=== PATIENT | female | born 1955 | race Caucasian/White ===

== ENCOUNTER 2023-12-08 18:03 | Inpatient (IN) | payer MEDICARE, OTHER ==
[~2023-12-08] VITALS: Ht 172.7 cm; Wt 40.7 kg
[2023-12-08] MEDS: LORazepam 2 mg/ml vial IV ONE (18:39)
[2023-12-08 19:29] LABS: BASOPHILS % (AUTO) 0.1 % (0-1); EOSINOPHILS % (AUTO) 0 % (0-6); HEMATOCRIT 33.9 % (35.0-45.0); HEMOGLOBIN 11.3 g/dl (12.0-16.0); LYMPHOCYTES # (AUTO) 0.4 X10'3 (1.1-4.8); LYMPHOCYTES % (AUTO) 5.1 % (21-51); MEAN CORPUSCULAR HEMOGLOBIN 30.6 PG (27.0-31.0); MEAN CORPUSCULAR HGB CONC 33.5 g/dL (33.0-36.5); MEAN CORPUSCULAR VOLUME 91.3 FL (78-98); MEAN PLATELET VOLUME 6.2 FL (7.4-10.4); MONOCYTES # (AUTO) 0.3 X10'3 (0-0.9); NEUTROPHILS # (AUTO) 7.5 X10'3 (1.8-7.7); NEUTROPHILS % (AUTO) 90.8 % (42-75); PLATELET COUNT 275 X10'3 (140-440); RED BLOOD COUNT 3.71 X10'6 (4.20-5.60); RED CELL DISTRIBUTION WIDTH 14.5 % (11.5-14.5); WHITE BLOOD COUNT 8.2 X10'3 (4.5-11.0)
[2023-12-08 19:32] LABS: ALBUMIN 1.9 G/DL (3.4-5.0); ANION GAP 7 (8-16); BLOOD UREA NITROGEN 20 MG/DL (7-18); BUN/CREATININE RATIO 30.8 (10.0-20.0); CALCIUM 8.9 MG/DL (8.5-10.1); CHLORIDE 109 MMOL/L (99-107); CREATININE 0.65 MG/DL (0.40-0.90); GLUCOSE 100 MG/DL (70-104); LIPASE 21 U/L (16-77); POTASSIUM 3.3 MMOL/L (3.5-5.1); SODIUM 142 MMOL/L (135-145); TOTAL CARBON DIOXIDE 26.1 MMOL/L (24-32); eCRCL 57 ML/MIN; eGFR > 90 ML/MIN
[2023-12-08] MEDS ORDERED: magnesium hydroxide 30ml (MOM) UD suspension PO PRN (22:00)
[2023-12-08] MEDS ORDERED: magnesium 4gm in 100ml NS 100 ML IV PRN (22:00)
[2023-12-08] MEDS ORDERED: magnesium 2GM in 50ml NS 50 ML IV PRN (22:00)
[2023-12-08] MEDS ORDERED: morphine 2 MG/ML inj. syringe IV PRN (22:00)
[2023-12-08] MEDS ORDERED: magnesium Cl slow-release 64mg tablet PO PRN (22:00)
[2023-12-08] MEDS ORDERED: potassium Cl 20 mEq SR tablet PO PRN ×2 (22:00)
[2023-12-08] MEDS ORDERED: mag hydrox/Alum hydrox/simeth 30ml oral suspension PO PRN (22:00)
[2023-12-08] MEDS ORDERED: acetaminophen 325mg tablet PO PRN (22:00)
[2023-12-08 23:02] LABS: INR 1.1 INR; PROTHROMBIN TIME 11.8 SECONDS (9.0-12.0)
[2023-12-08] MEDS: [UNRECOGNIZED DRUG - REMARK] IV ONE (23:53)
[2023-12-08] MEDS: heparin 10,000 units/1 ML INJ IV ONE (23:57)
[2023-12-08] MEDS: heparin 25,000 UNIT/250ml bag 250 ML IV PRN (23:58)
[2023-12-09] VITALS (10 sets, daily range): BP systolic 114–133; BP diastolic 65–82; PULSE 71–88; RESP 14–18; TEMP 97–98.1; O2SAT 91–98
[2023-12-09] MEDS: normal saline 1000ml 1,000 ML IV SCH (00:27)
[2023-12-09] MEDS ORDERED: AMOX-580 PO (04:16)
[2023-12-09] MEDS ORDERED: CHOL200052 PO (04:16)
[2023-12-09] MEDS ORDERED: AZIT-164 PO (04:16)
[2023-12-09] MEDS ORDERED: ALBU2.5V13 NEB (04:16)
[2023-12-09] MEDS ORDERED: DEXT20TA6 PO (04:16)
[2023-12-09] MEDS: pantoprazole 40 MG vial IV SCH (07:57)
[2023-12-09] MEDS: K and/or MAG REPLACEMENT MC SCH (08:00)
[2023-12-09] MEDS: docusate sod 100mg capsule PO SCH (08:00)
[2023-12-09 08:39] LABS: BASOPHILS % (AUTO) 0.2 % (0-1); EOSINOPHILS % (AUTO) 0.3 % (0-6); HEMATOCRIT 37.6 % (35.0-45.0); HEMOGLOBIN 12.4 g/dl (12.0-16.0); LYMPHOCYTES # (AUTO) 0.6 X10'3 (1.1-4.8); LYMPHOCYTES % (AUTO) 9.1 % (21-51); MEAN CORPUSCULAR HEMOGLOBIN 30.2 PG (27.0-31.0); MEAN CORPUSCULAR VOLUME 91.6 FL (78-98); MEAN PLATELET VOLUME 6.7 FL (7.4-10.4); MONOCYTES # (AUTO) 0.3 X10'3 (0-0.9); MONOCYTES % (AUTO) 4.5 % (2-12); NEUTROPHILS # (AUTO) 5.5 X10'3 (1.8-7.7); NEUTROPHILS % (AUTO) 85.9 % (42-75); PLATELET COUNT 291 X10'3 (140-440); RED CELL DISTRIBUTION WIDTH 15.3 % (11.5-14.5); WHITE BLOOD COUNT 6.4 X10'3 (4.5-11.0)
[2023-12-09 08:52] LABS: ALANINE AMINOTRANSFERASE 14 U/L (12-78); ALBUMIN 1.9 G/DL (3.4-5.0); ALBUMIN/GLOBULIN RATIO 0.4 (1.1-1.5); ALKALINE PHOSPHATASE 67 IU/L (46-116); ANION GAP 11 (8-16); ASPARTATE AMINO TRANSFERASE 18 U/L (10-37); BILIRUBIN,TOTAL 0.3 MG/DL (0.1-1.0); CALCIUM 9.3 MG/DL (8.5-10.1); CHLORIDE 109 MMOL/L (99-107); CREATININE 0.62 MG/DL (0.40-0.90); GLUCOSE 79 MG/DL (70-104); MAGNESIUM 2.3 MG/DL (1.5-2.4); POTASSIUM 3.4 MMOL/L (3.5-5.1); SODIUM 144 MMOL/L (135-145); TOTAL PROTEIN 6.7 G/DL (6.4-8.2); eCRCL 60 ML/MIN; eGFR > 90 ML/MIN
[2023-12-09 08:58] LABS: BLOOD UREA NITROGEN 20 MG/DL (7-18); BUN/CREATININE RATIO 32.3 (10.0-20.0)
[2023-12-09] MEDS: heparin 10,000 units/1 ML INJ IV PRN (09:31)
[2023-12-09 10:06] LABS: PRO BRAIN NATRIURETIC PEPTIDE 834 PG/ML (0-125)
[2023-12-09] MEDS: CefTRIAXone/D5W-Rocephin 1gm 50 ML IV SCH (10:19)
[2023-12-09] MEDS: MESSAGE TO NURSING IV ONE (10:19)
[2023-12-09] MEDS: bisacodyl 10mg suppository rectal RC STA (10:19)
[2023-12-09] MEDS: metroNIDAZOLE-Flagyl 500mg/NS 100 ML IV SCH (13:38)
[2023-12-09] MEDS: levoFLOXACIN-Levaquin 750MG/D5 150 ML IV SCH (13:38)
[2023-12-09] MEDS: heparin 25,000 UNIT/250ml bag 250 ML IV PRN (16:43)
[2023-12-09] MEDS: dextrose 5%-1/2 normal saline 1,000 ML IV SCH (18:04)
[2023-12-09] MEDS ORDERED: Melatonin 3mg tablet PO SCH (21:00)
[2023-12-09] MEDS: acetylcysteine 200 MG/ml 4ml vial INH SCH (23:22)
[2023-12-09] MEDS: [UNRECOGNIZED DRUG - REMARK] IV ONE (23:27)
[2023-12-10] VITALS (13 sets, daily range): BP systolic 123–160; BP diastolic 72–102; PULSE 73–85; RESP 13–24; TEMP 97–97.9; O2SAT 94–100
[2023-12-10] MEDS: LORazepam 2 mg/ml vial IV PRN (01:39)
[2023-12-10 08:13] LABS: BASOPHILS % (AUTO) 0.3 % (0-1); EOSINOPHILS % (AUTO) 0.4 % (0-6); HEMATOCRIT 34.3 % (35.0-45.0); HEMOGLOBIN 11.3 g/dl (12.0-16.0); LYMPHOCYTES # (AUTO) 0.6 X10'3 (1.1-4.8); LYMPHOCYTES % (AUTO) 11.7 % (21-51); MEAN CORPUSCULAR HEMOGLOBIN 29.9 PG (27.0-31.0); MEAN CORPUSCULAR HGB CONC 32.9 g/dL (33.0-36.5); MEAN PLATELET VOLUME 6.2 FL (7.4-10.4); MONOCYTES # (AUTO) 0.3 X10'3 (0-0.9); MONOCYTES % (AUTO) 5.8 % (2-12); NEUTROPHILS # (AUTO) 4.1 X10'3 (1.8-7.7); NEUTROPHILS % (AUTO) 81.8 % (42-75); PLATELET COUNT 338 X10'3 (140-440); RED BLOOD COUNT 3.77 X10'6 (4.20-5.60); RED CELL DISTRIBUTION WIDTH 14.4 % (11.5-14.5)
[2023-12-10 08:33] LABS: ALANINE AMINOTRANSFERASE 11 U/L (12-78); ALBUMIN 1.7 G/DL (3.4-5.0); ALBUMIN/GLOBULIN RATIO 0.4 (1.1-1.5); ALKALINE PHOSPHATASE 69 IU/L (46-116); ANION GAP 4 (8-16); ASPARTATE AMINO TRANSFERASE 13 U/L (10-37); BILIRUBIN,TOTAL 0.3 MG/DL (0.1-1.0); BLOOD UREA NITROGEN 20 MG/DL (7-18); BUN/CREATININE RATIO 31.7 (10.0-20.0); CALCIUM 8.9 MG/DL (8.5-10.1); CHLORIDE 106 MMOL/L (99-107); CREATININE 0.63 MG/DL (0.40-0.90); GLUCOSE 108 MG/DL (70-104); MAGNESIUM 1.9 MG/DL (1.5-2.4); POTASSIUM 3.3 MMOL/L (3.5-5.1); SODIUM 138 MMOL/L (135-145); TOTAL CARBON DIOXIDE 28.2 MMOL/L (24-32); TOTAL PROTEIN 6.2 G/DL (6.4-8.2); eCRCL 59 ML/MIN; eGFR > 90 ML/MIN
[2023-12-10] MEDS ORDERED: fentaNYL/PF 50MCG/1 ML 2ML syringe ONE (17:18)
[2023-12-10] MEDS ORDERED: MIDAZolam 1 MG/ML 5ML VIAL ONE (17:18)
[2023-12-10] MEDS ORDERED: LIDOcaine 2% Viscous 15ml cup ONE (17:18)
[2023-12-10] MEDS ORDERED: diphenhydrAMINE 50 mg/ml inj ONE (17:39)
[2023-12-10] MEDS: enoxaparin 40mg/0.4ml syringe SUBCUT SCH (19:44)
[2023-12-10] MEDS: morphine 2 MG/ML inj. syringe IV PRN (21:15)
[2023-12-10] MEDS: ondansetron/PF 4mg/2ml inj IV PRN (21:16)
[2023-12-10] MEDS: potassium Cl 40MEQ/1/2NS 520ml 520 ML IV PRN (21:17)
[2023-12-11] VITALS (9 sets, daily range): BP systolic 107–129; BP diastolic 62–84; PULSE 79–89; RESP 14–19; TEMP 97.3–97.8; O2SAT 92–98
[2023-12-11 05:44] LABS: BASOPHILS % (AUTO) 0.2 % (0-1); EOSINOPHILS % (AUTO) 0.5 % (0-6); HEMATOCRIT 35.9 % (35.0-45.0); LYMPHOCYTES # (AUTO) 0.7 X10'3 (1.1-4.8); LYMPHOCYTES % (AUTO) 10.7 % (21-51); MEAN CORPUSCULAR HEMOGLOBIN 30.2 PG (27.0-31.0); MEAN CORPUSCULAR HGB CONC 33.3 g/dL (33.0-36.5); MEAN CORPUSCULAR VOLUME 90.6 FL (78-98); MEAN PLATELET VOLUME 6.4 FL (7.4-10.4); MONOCYTES # (AUTO) 0.5 X10'3 (0-0.9); MONOCYTES % (AUTO) 7.6 % (2-12); NEUTROPHILS # (AUTO) 5.5 X10'3 (1.8-7.7); PLATELET COUNT 297 X10'3 (140-440); RED BLOOD COUNT 3.97 X10'6 (4.20-5.60); RED CELL DISTRIBUTION WIDTH 14.4 % (11.5-14.5); WHITE BLOOD COUNT 6.8 X10'3 (4.5-11.0)
[2023-12-11 06:35] LABS: ALBUMIN 1.6 G/DL (3.4-5.0); ALBUMIN/GLOBULIN RATIO 0.3 (1.1-1.5); ALKALINE PHOSPHATASE 66 IU/L (46-116); ANION GAP 7 (8-16); ASPARTATE AMINO TRANSFERASE 17 U/L (10-37); BILIRUBIN,TOTAL 0.3 MG/DL (0.1-1.0); BLOOD UREA NITROGEN 12 MG/DL (7-18); BUN/CREATININE RATIO 25.5 (10.0-20.0); CALCIUM 8.7 MG/DL (8.5-10.1); CHLORIDE 102 MMOL/L (99-107); CREATININE 0.47 MG/DL (0.40-0.90); GLUCOSE 99 MG/DL (70-104); MAGNESIUM 1.7 MG/DL (1.5-2.4); POTASSIUM 3.6 MMOL/L (3.5-5.1); SODIUM 131 MMOL/L (135-145); TOTAL CARBON DIOXIDE 22.1 MMOL/L (24-32); TOTAL PROTEIN 6.2 G/DL (6.4-8.2); eCRCL 79 ML/MIN; eGFR > 90 ML/MIN
[2023-12-11 06:42] LABS: ALANINE AMINOTRANSFERASE < 6 U/L (12-78)
[2023-12-11] MEDS ORDERED: docusate sodium 100mg/10ml UD cup PO SCH (15:02)
[2023-12-11] MEDS ORDERED: acetaminophen 325mg tablet GT PRN (16:05)
[2023-12-11] MEDS ORDERED: magnesium hydroxide 30ml (MOM) UD suspension GT PRN (16:05)
[2023-12-11] MEDS ORDERED: mag hydrox/Alum hydrox/simeth 30ml oral suspension GT PRN (16:06)
[2023-12-11] MEDS: bisacodyl 10mg suppository rectal RC STA (17:16)
[2023-12-11] MEDS: HYDROcodone/acetaminophen 5mg/325mg tablet PO PRN (17:17)
[2023-12-11] MEDS ORDERED: albuterol 2.5 MG/3 ML nebule NEB SCH (20:00)
[2023-12-11] MEDS: docusate sodium 100mg/10ml UD cup GT SCH (20:15)
[2023-12-12] VITALS (7 sets, daily range): BP systolic 102–122; BP diastolic 60–78; PULSE 71–94; RESP 15–20; TEMP 97.1–97.9; O2SAT 93–100
[2023-12-12 12:43] LABS: BASOPHILS % (AUTO) 0.1 % (0-1); EOSINOPHILS % (AUTO) 0.4 % (0-6); HEMATOCRIT 31.4 % (35.0-45.0); HEMOGLOBIN 10.7 g/dl (12.0-16.0); LYMPHOCYTES # (AUTO) 0.4 X10'3 (1.1-4.8); LYMPHOCYTES % (AUTO) 8.1 % (21-51); MEAN CORPUSCULAR HEMOGLOBIN 30.5 PG (27.0-31.0); MEAN CORPUSCULAR VOLUME 89.6 FL (78-98); MEAN PLATELET VOLUME 6.7 FL (7.4-10.4); MONOCYTES # (AUTO) 0.3 X10'3 (0-0.9); MONOCYTES % (AUTO) 6.2 % (2-12); NEUTROPHILS # (AUTO) 4.6 X10'3 (1.8-7.7); NEUTROPHILS % (AUTO) 85.2 % (42-75); PLATELET COUNT 264 X10'3 (140-440); RED CELL DISTRIBUTION WIDTH 14.3 % (11.5-14.5); WHITE BLOOD COUNT 5.3 X10'3 (4.5-11.0)
[2023-12-12 13:05] LABS: ALANINE AMINOTRANSFERASE 14 U/L (12-78); ALBUMIN 1.6 G/DL (3.4-5.0); ALBUMIN/GLOBULIN RATIO 0.4 (1.1-1.5); ALKALINE PHOSPHATASE 52 IU/L (46-116); ANION GAP 3 (8-16); ASPARTATE AMINO TRANSFERASE 21 U/L (10-37); BILIRUBIN,TOTAL 0.3 MG/DL (0.1-1.0); BLOOD UREA NITROGEN 13 MG/DL (7-18); BUN/CREATININE RATIO 27.1 (10.0-20.0); CALCIUM 8.2 MG/DL (8.5-10.1); CHLORIDE 100 MMOL/L (99-107); CREATININE 0.48 MG/DL (0.40-0.90); GLUCOSE 92 MG/DL (70-104); MAGNESIUM 1.6 MG/DL (1.5-2.4); POTASSIUM 3.5 MMOL/L (3.5-5.1); SODIUM 132 MMOL/L (135-145); TOTAL CARBON DIOXIDE 29.2 MMOL/L (24-32); TOTAL PROTEIN 5.7 G/DL (6.4-8.2); eCRCL 71 ML/MIN; eGFR > 90 ML/MIN
[2023-12-12] MEDS: HYDROcodone/acetaminophen 5mg/325mg tablet PO PRN (14:30)
[2023-12-13] VITALS (8 sets, daily range): BP systolic 114–131; BP diastolic 49–90; PULSE 62–87; RESP 12–18; TEMP 97–97.8; O2SAT 95–98
[2023-12-13 05:59] LABS: BASOPHILS % (AUTO) 0 % (0-1); EOSINOPHILS % (AUTO) 0.4 % (0-6); HEMATOCRIT 34.9 % (35.0-45.0); HEMOGLOBIN 11.8 g/dl (12.0-16.0); LYMPHOCYTES # (AUTO) 0.5 X10'3 (1.1-4.8); LYMPHOCYTES % (AUTO) 10.3 % (21-51); MEAN CORPUSCULAR HEMOGLOBIN 30.4 PG (27.0-31.0); MEAN CORPUSCULAR HGB CONC 33.9 g/dL (33.0-36.5); MEAN CORPUSCULAR VOLUME 89.7 FL (78-98); MEAN PLATELET VOLUME 6.5 FL (7.4-10.4); MONOCYTES # (AUTO) 0.2 X10'3 (0-0.9); MONOCYTES % (AUTO) 4.7 % (2-12); NEUTROPHILS # (AUTO) 4.3 X10'3 (1.8-7.7); NEUTROPHILS % (AUTO) 84.6 % (42-75); PLATELET COUNT 284 X10'3 (140-440); RED BLOOD COUNT 3.89 X10'6 (4.20-5.60); RED CELL DISTRIBUTION WIDTH 14.2 % (11.5-14.5); WHITE BLOOD COUNT 5.1 X10'3 (4.5-11.0)
[2023-12-13 06:16] LABS: ALANINE AMINOTRANSFERASE 10 U/L (12-78); ALBUMIN 1.7 G/DL (3.4-5.0); ALBUMIN/GLOBULIN RATIO 0.4 (1.1-1.5); ALKALINE PHOSPHATASE 62 IU/L (46-116); ANION GAP 2 (8-16); ASPARTATE AMINO TRANSFERASE 24 U/L (10-37); BILIRUBIN,TOTAL 0.3 MG/DL (0.1-1.0); BLOOD UREA NITROGEN 12 MG/DL (7-18); BUN/CREATININE RATIO 21.8 (10.0-20.0); CALCIUM 8.2 MG/DL (8.5-10.1); CHLORIDE 101 MMOL/L (99-107); CREATININE 0.55 MG/DL (0.40-0.90); GLUCOSE 114 MG/DL (70-104); POTASSIUM 3.4 MMOL/L (3.5-5.1); PREALBUMIN 10.8 MG/DL (19-36); SODIUM 132 MMOL/L (135-145); TOTAL CARBON DIOXIDE 29.3 MMOL/L (24-32); TOTAL PROTEIN 6.1 G/DL (6.4-8.2); eCRCL 62 ML/MIN; eGFR > 90 ML/MIN
[2023-12-14] MEDS: LORazepam 2 mg/ml vial IV ONE (04:40)
[2023-12-14 08:00] VITALS: RESP 18; O2SAT 98
[2023-12-14] MEDS: apixaban 5mg tablet PO SCH (09:04)
[2023-12-14 09:05] LABS: BASOPHILS % (AUTO) 0.1 % (0-1); EOSINOPHILS % (AUTO) 0.7 % (0-6); HEMATOCRIT 34.6 % (35.0-45.0); HEMOGLOBIN 11.8 g/dl (12.0-16.0); LYMPHOCYTES # (AUTO) 0.6 X10'3 (1.1-4.8); LYMPHOCYTES % (AUTO) 12.6 % (21-51); MEAN CORPUSCULAR HEMOGLOBIN 30.3 PG (27.0-31.0); MEAN CORPUSCULAR VOLUME 89.1 FL (78-98); MEAN PLATELET VOLUME 6.5 FL (7.4-10.4); MONOCYTES # (AUTO) 0.3 X10'3 (0-0.9); MONOCYTES % (AUTO) 6.8 % (2-12); NEUTROPHILS # (AUTO) 3.6 X10'3 (1.8-7.7); NEUTROPHILS % (AUTO) 79.8 % (42-75); PLATELET COUNT 307 X10'3 (140-440); RED BLOOD COUNT 3.89 X10'6 (4.20-5.60); RED CELL DISTRIBUTION WIDTH 14.3 % (11.5-14.5); WHITE BLOOD COUNT 4.5 X10'3 (4.5-11.0)
[2023-12-14 09:17] LABS: ALANINE AMINOTRANSFERASE 12 U/L (12-78); ALBUMIN 1.8 G/DL (3.4-5.0); ALBUMIN/GLOBULIN RATIO 0.4 (1.1-1.5); ALKALINE PHOSPHATASE 67 IU/L (46-116); ANION GAP 2 (8-16); ASPARTATE AMINO TRANSFERASE 28 U/L (10-37); BILIRUBIN,TOTAL 0.3 MG/DL (0.1-1.0); BLOOD UREA NITROGEN 10 MG/DL (7-18); BUN/CREATININE RATIO 19.6 (10.0-20.0); CALCIUM 8.5 MG/DL (8.5-10.1); CHLORIDE 101 MMOL/L (99-107); CREATININE 0.51 MG/DL (0.40-0.90); GLUCOSE 105 MG/DL (70-104); POTASSIUM 3.3 MMOL/L (3.5-5.1); SODIUM 133 MMOL/L (135-145); TOTAL CARBON DIOXIDE 30.5 MMOL/L (24-32); eCRCL 67 ML/MIN; eGFR > 90 ML/MIN
[2023-12-14] MEDS ORDERED: potassium Cl 20 mEq SR tablet PO PRN (11:15)
[2023-12-14] MEDS ORDERED: potassium Cl 40MEQ/1/2NS 520ml 520 ML IV PRN ×2 (11:15)
[2023-12-14 15:00] VITALS: BP 141/92; PULSE 78; RESP 18; TEMP 97; O2SAT 98
[2023-12-14] MEDS: potassium Cl 20 mEq SR tablet PO PRN (17:17)
[2023-12-14 18:00] VITALS: BP 123/66; PULSE 78; RESP 16; TEMP 98; O2SAT 97
[2023-12-14] MEDS: K and/or MAG REPLACEMENT MC SCH (19:15)
[2023-12-14 20:00] VITALS: RESP 18; O2SAT 98
[2023-12-14 22:00] VITALS: BP 135/76; PULSE 78; RESP 17; TEMP 97.8; O2SAT 100
[2023-12-15 02:00] VITALS: BP 124/65; PULSE 84; RESP 16; TEMP 97; O2SAT 98
[2023-12-15 06:00] VITALS: BP 125/78; PULSE 94; RESP 20; TEMP 97.6; O2SAT 98
[2023-12-15 08:00] VITALS: RESP 20; O2SAT 98
[2023-12-15] MEDS: dextroamphetamine/amphetamine 5mg tablet PO SCH (08:00)
[2023-12-15] MEDS ORDERED: apixaban 5mg tablet PO SCH (08:00)
[2023-12-15 11:00] VITALS: BP 121/77; PULSE 71; RESP 18; TEMP 98.1; O2SAT 100
[2023-12-15] MEDS ORDERED: CHOL200052 PEG (11:29)
[2023-12-15] MEDS ORDERED: METR-159 PEG (11:29)
[2023-12-15] MEDS ORDERED: DEXT20TA6 PEG (11:29)
[2023-12-15 15:00] VITALS: BP 104/69; PULSE 80; RESP 16; TEMP 97.5; O2SAT 96
[2023-12-15] MEDS ORDERED: APIX5TAB3 PEG (15:39)
[2023-12-15] MEDS ORDERED: LEVO750T68 PEG (15:39)
[2023-12-16] MEDS ORDERED: apixaban 5mg tablet PO SCH (08:00)
== END 2023-12-15 16:15 | disposition home or self-care (01) | DRG 177 ==
LOC: ER 18:04 → ED HOLD 22:03 → EDBEDREQ 12-09 04:46 → PCU 3S 12-09 05:44
PROVIDERS: ADMIT Internal Medicine Sleep Medicine; ATTEND Internal Medicine
PROC: 05HA33Z Insertion of Infusion Device into Left Brachial Vein, Percutaneous Approach (ICD-10-PCS; 2023-12-09)
PROC: 0DH63UZ Insertion of Feeding Device into Stomach, Percutaneous Approach (ICD-10-PCS; principal; 2023-12-10)
PROC: 0D758ZZ Dilation of Esophagus, Via Natural or Artificial Opening Endoscopic (ICD-10-PCS; 2023-12-10)
DX: J69.0 Pneumonitis due to inhalation of food and vomit (principal); E43 Unspecified severe protein-calorie malnutrition; I26.99 Other pulmonary embolism without acute cor pulmonale; Z68.1 Body mass index [BMI] 19.9 or less, adult; E86.0 Dehydration; D64.9 Anemia, unspecified; F32.A Depression, unspecified; K22.2 Esophageal obstruction; E87.6 Hypokalemia; Z20.822 Contact with and (suspected) exposure to COVID-19; Z92.3 Personal history of irradiation; Z92.21 Personal history of antineoplastic chemotherapy; Z85.01 Personal history of malignant neoplasm of esophagus; Z98.1 Arthrodesis status
CPT/HCPCS: 36410; 36415; 43246; 43450; 70450; 71045; 76937; 80048; 80053; 82948; 83690; 83735; 83880; 84134; 84145; 84484; 85025; 85610; 85730; 87811; 92508; 92616; 93306; 94640; 94760; 97116; 97161; 97530; 97535; 99152; 99153; 99285; A4620; A6212; A6213; B4087; C9113; G0378; J0696; J1200; J1644; J1650; J1956; J2060; J2250; J2270; J2405; J3010; J3480; J3490; J7030; J7040

== ENCOUNTER 2024-01-27 08:47 | Outpatient (CLI) | payer MEDICARE ==
[~2024-01-27] VITALS: Ht 172.7 cm; Wt 35.8 kg
[~2024-01-27 08:47] MED LIST: ALBU2.5V13 NEB; APIX5TAB3 PEG; CHOL200052 PEG; DEXT20TA6 PEG; LEVO750T68 PEG; METR-159 PEG
[2024-01-27] MEDS: albuterol 2.5 MG/3 ML nebule NEB ONE (10:04)
[2024-02-02 13:49] VITALS: PULSE 111; RESP 22; O2SAT 90
== END 2024-01-27 23:59 | disposition home or self-care (01) ==
LOC: RT 08:47
PROVIDERS: ATTEND Family Medicine
DX: R13.10 Dysphagia, unspecified (principal); I26.99 Other pulmonary embolism without acute cor pulmonale
CPT/HCPCS: 94010